=== PATIENT | male | born 1955 | race Asian ===

== ENCOUNTER → 2023-11-17 10:37 | Outpatient (REF) | payer MEDICARE, BC, SELFPAY ==
[2023-11-17 11:54] LABS: Hematocrit 34.3 % (39.0-52.0); Hemoglobin 10.8 g/dL (13.0-18.0); Mean Corp Hgb Conc. 31.5 g/dL (33.0-37.0); Mean Corpuscular Hgb 25.5 pg (27.0-31.0); Mean Corpuscular Volume 80.9 fL (80.0-94.0); Mean Platelet Volume 12.6 fL (7.4-10.4); Platelet Count 71 10^3/uL (130-400); Red Blood Cell Count 4.24 10^6/uL (4.70-6.10); Red Cell Dist. Width 16.3 % (11.5-14.5); White Blood Cell Count 4.5 10^3/uL (4.8-10.8)
[2023-11-17 12:18] LABS: ALT (SGPT) 14 U/L (0-50); AST (SGOT) 17 U/L (17-59); Albumin 3.7 g/dl (3.5-5.0); Alkaline Phosphatase 100 U/L (38-126); Blood Urea Nitrogen 17 mg/dl (9-20); Calcium 9.4 mg/dl (8.4-10.2); Carbon Dioxide 25 mmol/L (22-30); Chloride 101 mmol/L (98-107); Glucose 153 mg/dl (70-99); Potassium 3.9 mmol/L (3.5-5.1); Sodium 137 mmol/L (135-145); Total Bilirubin 0.8 mg/dl (0.2-1.3); Total Protein 7.6 g/dl (6.3-8.2); eGFR > 60.00
[2023-11-17 12:33] LABS: Absolute Neutrophils -Man Diff 1.6 10^3/uL (1.4-6.5); Anisocytosis Slight; Band Neutrophils 0 % (0-3); Lymphocytes 31 % (20-51); Monocytes 32 % (2-9); Normal RBC Morphology No; Platelets Checked Yes; Polychromasia Slight; Segmented Neutrophils 37 % (42-75)
[2023-11-17 12:34] LABS: Total Cells Counted 100
== END ==
LOC: RAD 10:37
PROVIDERS: ATTENDING PHYSICIAN Family Medicine
DX: R07.81 Pleurodynia (principal); R05.8 Other specified cough
CPT/HCPCS: 36415; 71046; 80053; 85025; 86140

== ENCOUNTER → 2023-11-23 08:19 | Outpatient (REF) | payer MEDICARE, BC, SELFPAY | LOC: HWRAD 08:19 | PROVIDERS: ATTENDING PHYSICIAN Family Medicine | DX: R07.81 Pleurodynia (principal); R05.8 Other specified cough; R93.89 Abnormal findings on diagnostic imaging of other specified body structures; D61.818 Other pancytopenia | CPT/HCPCS: 71270; Q9967 ==

== ENCOUNTER → 2023-12-26 04:00 | Outpatient (REF) | payer MEDICARE, BC, SELFPAY | LOC: DHSLP 04:00 | PROVIDERS: ATTENDING PHYSICIAN Internal Medicine; FAMILY PHYSICIAN Family Medicine | DX: G47.30 Sleep apnea, unspecified (principal); R06.83 Snoring | CPT/HCPCS: 95800 ==

== ENCOUNTER → 2024-01-22 14:47 | Outpatient (REF) | payer MEDICARE, BC, SELFPAY ==
[2024-01-22 16:19] LABS: Hematocrit 35.8 % (39.0-52.0); Hemoglobin 11.1 g/dL (13.0-18.0); Mean Corpuscular Hgb 25.8 pg (27.0-31.0); Mean Corpuscular Volume 83.3 fL (80.0-94.0); Platelet Count 69 10^3/uL (130-400); Red Cell Dist. Width 15.9 % (11.5-14.5); Reticulocyte Count 2.1 % (0.4-2.8); White Blood Cell Count 3.9 10^3/uL (4.8-10.8)
[2024-01-22 16:36] LABS: Blood Urea Nitrogen 17 mg/dl (9-20); Calcium 9.2 mg/dl (8.4-10.2); Carbon Dioxide 25 mmol/L (22-30); Chloride 107 mmol/L (98-107); Glucose 91 mg/dl (70-99); Iron 67 ug/dl (49-181); LDH 138 U/L (120-246); Sodium 141 mmol/L (135-145); eGFR > 60.00
[2024-01-22 16:47] LABS: Percent Saturation 21 % (20-50); Total Iron Binding Capacity 314 ug/dl (261-462)
[2024-01-22 16:56] LABS: Erythrocyte Sed Rate 39 mm/hour (0-20)
[2024-01-22 17:15] LABS: Ferritin 27.4 ng/ml (17.9-464.0)
[2024-01-22 17:46] LABS: Folate 17.8 ng/ml (2.76-20); Vitamin B12 > 1000 pg/ml (239-931)
[2024-01-22 17:48] LABS: Pathologist Reviewed No
[2024-01-22 17:54] LABS: Band Neutrophils 0 % (0-3); Eosinophils 2 % (0-6); Lymphocytes 43 % (20-51); Monocytes 33 % (2-9); Segmented Neutrophils 22 % (42-75)
[2024-01-22 17:55] LABS: Normal RBC Morphology Yes; Platelets Checked Yes
[2024-01-22 17:56] LABS: Total Cells Counted 100
[2024-01-22 19:09] LABS: Absolute Neutrophils -Man Diff 0.8 10^3/uL (1.4-6.5)
[2024-01-24 08:02] LABS: Erythropoietin (EPO) 11 mU/mL (4-27)
[2024-01-24 10:40] LABS: Haptoglobin 46 mg/dL (30-200)
[2024-01-24 15:06] LABS: ANA, IgG Reflex to HEp-2 None Detected (None Detected)
== END ==
LOC: RAD 14:47
PROVIDERS: ATTENDING PHYSICIAN Nurse Practitioner Adult Health; FAMILY PHYSICIAN Family Medicine
DX: D64.9 Anemia, unspecified (principal); D69.6 Thrombocytopenia, unspecified
CPT/HCPCS: 36415; 76700; 80048; 82607; 82668; 82728; 82746; 82784; 83010; 83521; 83540; 83550; 83615; 84155; 84165; 85025; 85045; 85652; 86038; 86334; 86880

== ENCOUNTER → 2024-02-09 06:46 | Outpatient (REF) | payer MEDICARE, BC, SELFPAY ==
[2024-02-07 11:24] VITALS: BMI 23.0
[2024-02-09] VITALS (7 sets, daily range): BP systolic 61–130; BP diastolic 64–75
[2024-02-09 07:15] LABS: Hematocrit 34.8 % (39.0-52.0); Hemoglobin 11.2 g/dL (13.0-18.0); Mean Corp Hgb Conc. 32.2 g/dL (33.0-37.0); Mean Corpuscular Hgb 25.9 pg (27.0-31.0); Mean Corpuscular Volume 80.6 fL (80.0-94.0); Platelet Count 60 10^3/uL (130-400); Red Blood Cell Count 4.32 10^6/uL (4.70-6.10); Red Cell Dist. Width 15.5 % (11.5-14.5); White Blood Cell Count 4.7 10^3/uL (4.8-10.8)
[2024-02-09 07:16] LABS: INR 1.08
[2024-02-09 07:52] LABS: Segmented Neutrophils 19 % (42-75)
[2024-02-09 07:53] LABS: Atypical Lymphocytes 3 %; Eosinophils 2 % (0-6); Lymphocytes 44 % (20-51); Metamyelocytes 2 % (-); Monocytes 30 % (2-9); Normal RBC Morphology Yes; Platelets Checked Yes; Total Cells Counted 100
[2024-02-09] MEDS: NSS (PRESERVATIVE FREE) 0.25 ML IV (08:17)
[2024-02-09] MEDS: ATIVAN 0.5 MG IV (08:18)
[2024-02-09] MEDS: FLUSH (NSS) 1 FLUSH IV (08:18)
== END ==
LOC: RADI 06:46
PROVIDERS: ATTENDING PHYSICIAN Internal Medicine Hematology & Oncology
DX: D64.9 Anemia, unspecified (principal); D69.6 Thrombocytopenia, unspecified; D72.821 Monocytosis (symptomatic); D68.8 Other specified coagulation defects
CPT/HCPCS: 88305; 88311; 88312; 36415; 38222; 77012; 85025; 85610; 88313; 88341; 88342

== ENCOUNTER → 2024-02-28 11:46 | Outpatient (REF) | payer MEDICARE, BC, SELFPAY | LOC: RAD 11:46 | PROVIDERS: ATTENDING PHYSICIAN Physician Assistant | DX: J98.4 Other disorders of lung (principal); R09.89 Other specified symptoms and signs involving the circulatory and respiratory systems | CPT/HCPCS: 71046 ==